=== PATIENT | female | born 1995 | race Caucasian/White ===

== ENCOUNTER 2023-07-30 19:05 | Observation (INO) | payer MEDICAID ==
[~2023-07-30] VITALS: Ht 152.4 cm; Wt 78.5 kg
[2023-07-30] MEDS ORDERED: LACTATED RINGERS 1,000 ML IV ONE (20:25)
[2023-07-30 20:59] LABS: APPEARANCE,URINE CLEAR (CLEAR); BILIRUBIN,URINE NEGATIVE (NEGATIVE); BLOOD, URINE NEGATIVE (NEGATIVE); COLOR,URINE YELLOW (YELLOW); LEUKOCYTE ESTERASE ,URINE NEGATIVE (NEGATIVE); NITRITE, URINE NEGATIVE (NEGATIVE); PROTEIN,URINE NEGATIVE (NEGATIVE); UGLUCOSE NEGATIVE (NEGATIVE); UROBILINOGEN,URINE 0.2 EU/dL (0.2 - 1)
[2023-07-30] MEDS ORDERED: LACTATED RINGERS 1,000 ML IV SCH (21:25)
[2023-07-30 21:57] VITALS: BP 106/61; PULSE 85; RESP 17; TEMP 98.3
== END 2023-07-30 23:00 | disposition home or self-care (01) ==
LOC: MLD 19:05
PROVIDERS: ADMIT Obstetrics & Gynecology; ATTEND Obstetrics & Gynecology
DX: O62.9 Abnormality of forces of labor, unspecified (principal); Z20.822 Contact with and (suspected) exposure to COVID-19; Z3A.38 38 weeks gestation of pregnancy
CPT/HCPCS: 59025; 81000; 81003; 96360; 96361; G0378; J7120